=== PATIENT | female | born 1990 | race Caucasian/White ===

== ENCOUNTER 2020-12-24 17:12 | Emergency (ER) | payer OTHER ==
[~2020-12-24] VITALS: Ht 165.1 cm; Wt 110.0 kg
[2020-12-24] MEDS ORDERED: EXCETAB33 PO (17:22)
[2020-12-24] MEDS ORDERED: HYDR-643 PO (17:22)
[2020-12-24] MEDS ORDERED: NAPR220C23 PO (17:22)
--- OUTSIDE RECORDS SUMMARY | 2020-12-24 19:11 | CCD ---
Author Author [facility] Organization [facility] Address Unknown Phone Unavailable Care Team Providers Care Coding Consultant Name Role Phone Phuong Adelaida Unavailable PROBLEMS Type Condition ICD9-CM Code BIF53-BP Code Onset Dates Condition S tatus SNOMED Code Notes Problem Kidney stone N20.0 Active 21286168 Problem Obesity (BMI 30-39.9) E66.9 Active [id number] ALLERGIES No Known Allergies ENCOUNTERS from 1988 to 2020-11-02 Encounter Location Date Provider Diagnosis [facility] [address] [place] [address] Oct, Adelaida Baca Routine gynecologica l examination Z01.419 ; Obesity (BMI 30-39.9) E66.9 and Pre-conception counseling Z31.69 IMMUNIZATIONS No Information SOCIAL HISTORY Tobacco Use: Social History Observation Description Date Details (start date - stop date) Never Smoker Sex Assigned At : Social History Observation Description Sex Assigned At Unknown Language: Question Answer Notes Languages spoken: Citizen Of [place] Islam: Question Answer Notes Islam No uatsdin beliefs that would impact health care. Sexual Hx: Question Answer Notes Had sex in the last 12 months (vaginal, oral, or anal)? Yes Have you ever had an STD? No Prevention Strategies discussed: Other with Men only Alcohol Screening: Question Answer Notes Did you have a drink containing alcohol in the past year? Ye s Points 1 Interpretation Negative How often did you have six or more drinks on one occas ion in the past year? Never (0 points) How many drinks did you have on a typica l day when you were drinking in the past year? 1 or 2 (0 points) How often did you have a drink containing alcohol in t he past year? Monthly or less (1 point) Tobacco Use: Question Answer Notes Are you a: never smoker REASON FOR REFERRAL No Information VITAL SIGNS Weight 233 lbs Oct, Weight-kg 105.69 kg Oct, Height 64 in Oct, BMI 39.99 kg/m2 Oct, Blood pressure systolic 112 mm Hg Oct, Blood pressure diastolic 76 mm Hg Oct, MEDICATIONS Medication SIG (Take, Route, Frequency, Duration) Notes Start Da te End Date Status Naproxen Sodium 550 MG 1 tablet with food or milk as needed Orally every 12 hrs Active Adult Gummy/DHA/FA 0.4-25 MG as directed Orally Active HydrOXYzine HCl 10 MG 1 tab Orally QHS PRN Not-Taking PROCEDURES No Information RESULTS Component Value Reference Range PAP REQUEST FOR SERVICE Reviewed date:11/02/2020 07:58:29 Interpretation:neg pap, hpv neg Performing Lab:[facility], [facility] [address] [address] , ,[place] [address] REASON FOR VISIT ANNUAL MEDICAL (GENERAL) HISTORY Type Description Date Medical History KIDNEY STONES Medical History ANXIETY Medical History depression Surgical History CHOLECYSTECTOMY 2013 Surgical History LASER LITHO RIGHT SIDE W/ STENT PLACEME NT 17 YRS OLD Goals Section No Information Health Concerns No Information MEDICAL EQUIPMENT No Information MENTAL STATUS No Information FUNCTIONAL STATUS No Information ASSESSMENTS Encounter Date Diagnosis Assessment Notes Treatment Notes Treatm ent Clinical Notes Oct, Routine gynecological examination (ICD-10 - Z01. 419) Oct, Obesity (BMI 30-39.9) (ICD-10 - E66.9) Oct, Pre-conception counseling (ICD-10 - Z31.69) Cont with PNV, discussed with pt healthy diet and exercise, her wt is her biggest concern at this time in regards to . She is ovulating and having regular cycles. We reviewed healthy diet, avoiding take out meals for lunches at work. PLAN OF TREATMENT Treatment Notes Assessment Notes Clinical Notes Pre-conception counseling Cont with PNV, discussed with pt healthy diet and exercise, her wt is her biggest concern at this time in regards to . She is ovulating and having regular cycles. We reviewed healthy diet, avoiding take out meals for lunches at work. Next Appt Details 1 Year Reason:Annual or sooner prn Provider Name:Sana Pugh, 2020-11-23 09:00:00 AM, [address] [place], [address], Follow Up:1 YearAnnual or sooner prn Insurance Providers Payer Name Payer Address Payer Phone Insured Name Patient Relati onship to Insured Coverage Start Date Coverage End Date [facility] [address] [facility] [id number] Gaurav HOGAN self
--- OUTSIDE RECORDS SUMMARY | 2020-12-24 19:11 | CCD | Continuity of Care Document ---
Author Author Charisma PETERSEN [facility] Organization Unknown Address [address] [place] [address] Phone [phone] Care Team Providers Care Carton Filling Machine Operator Name Role Phone [facility] AUT[facility]rology AUTM Problems Active Problems Provider Date Gastroesophageal reflux disease Margarito López M.D. O nset: 01/09/2012 Obesity Margarito López M.D. Onset: 2011 Kidney stone Margarito López M.D. Onset: 2011 Migraine Margarito López M.D. Onset: 2013 Irritable bowel syndrome Margarito López M.D. Onset: 0 03/04/2014 Social History Type Date Description Comments Sex Unknown Tobacco Use Start: Unknown Never Smoked Cigarettes Smoking Status Reviewed: 12/21/20 Never Smoked Cigarettes Tobacco Use Start: Unknown Never Used Smokeless Tobacco ETOH Use Occasionally consumes alcohol Tobacco Use Start: Unknown Patient has never smoked Recreational Drug Use Never Used Drugs Exercise Type/Frequency Exercises regularly Tattoo/Piercing Pierced ears Sun Exposure Use less than 15 SPF Seat Belt/Car Seat Always uses seat belt Bike Helmet does not ride Smoke Alarms Yes Smoke Alarms Carbon Monoxide Detector: Yes Allergies, Adverse Reactions, Alerts Active Allergies Reaction Severity Comments Date NKDA 01/09/2012 seasonal 12/14/2010 Medications Active Medications SIG Qnty Indications Ordering Provide r Date Anusol-HC 25mg Suppository one by way of rectum twice a day 12units K64.8 Nicola DANIEL Bliss 12/21/19 21 Colace 100mg Capsules 1 cap by mouth twice a day 180caps Nicola DANIEL Bliss 12/21/2020 Naproxen Sodium 550mg Tablets one po bid prn for menstrual cramps 60tabs Ruthy Petersen FNP Hydroxyzine HCL 10mg Tablets 1-2 tab by mouth three times a day as needed anxiety 60tabs F51.02 Ruthy Guy ch, FNP 02/12/2020 Zyrtec Allergy 10mg Tablets 1 by mouth every day as needed Unknown Excedrin Migraine [phone] Tablets Unknown Fish Oil 1000mg Capsules 2 by mouth a day Unknown Probiotic Daily Capsules 1 by mouth every day Unknown Vitamin Tablets 1 by mouth every day Unknown History Medications Sertraline HCL 50mg Tablets 1 by mouth every day 30tabs F43.23 Ruthy Petersen FNP 10/12/2020 - 12/21/2020 Immunizations CPT Code Status Date Vaccine Lot # [id number] Given 12/21/2020 Moderna Sars-(Co vid-19) vaccine, mRNA, LNP-S, PF, 100 mcg/ 0.5 mL 87125 Given 12/21/2020 Moderna Sars-(Co vid-19) vaccine, mRNA, LNP-S, PF, 100 mcg/ 0.5 mL Vital Signs Date Vital Result Comment 12/21/2020 4:11pm BP Systolic 130 mmHg BP Diastolic 77 mmHg Heart Rate 88 /min Body Temperature 96.4 F Respiratory Rate 16 /min Height 65 inches 5'5" Weight 242.38 lb O2 % BldC Oximetry 99 % Peak Expiratory Flow Rate 390 Estimated Peak Flow Rate [place] Body Weight 125 lb BMI (Body Mass Index) 40.3 kg/m2 10/12/2020 4:59pm BP Systolic 100 mmHg BP Diastolic 62 mmHg Heart Rate 72 /min Body Temperature 97.1 F Respiratory Rate 16 /min Height 65 inches 5'5" Weight 238.50 lb O2 % BldC Oximetry 99 % Peak Expiratory Flow Rate 390 Estimated Peak Flow Rate Last Menstrual Period [id number] [place] Body Weight 125 lb BMI (Body Mass Index) 39.7 kg/m2 Results Description No Information Available Procedures Description No Information Available Medical Devices Description No Information Available Encounters Type Date Location Provider Dx Diagnosis Office Visit 10/12/2020 4:45p Main Office Ruthy Petersen FNP Z00.0 0 Encntr for general adult medical exam w/o abnormal findings F43.23 Adjustment disorder with mix ed anxiety and depressed mood G43.101 Migraine with aura, not intr actable, with status migrainosus Assessments Date Code Description Provider 12/21/2020 R00.2 Palpitations Ruthy Petersen FNP 10/12/2020 Z00.00 Encounter for genera l adult medical examination without abnormal findings Ruthy Petersen FNP 10/12/2020 F43.23 Adjustment disorder with mixed a nxiety and depressed mood Ruthy Petersen FNP 10/12/2020 G43.101 Migraine with aura, not intracta ble, with status migrainosus Ruthy Petersen FNP Plan of Treatment 12/21/2020 - Ruthy Petersen FNP* R00.2 Palpitations* New Labs:* Basic Metabolic Profile, Scheduled: 12/21/20 * Magnesium Level, Scheduled: 12/21/20 * TSH And T4 Free (Nelson), Scheduled: 12/21/20 * Comments:* refer to Cardiology * All * New Medication:* Anusol-HC 25 mg - one by way of rectum twice a day * Colace 100 mg - 1 cap by mouth twice a day Functional Status Functional Condition Comment Date Status Glasses Active Independent with all ADL's Activ e Independent with all IADL's Acti ve Mental Status Mental Condition Comment Date Status None Active Referrals Description No Information Available
--- OUTSIDE RECORDS SUMMARY | 2020-12-24 19:11 | CCD | Continuity of Care Document ---
Author Author Charisma PETERSEN [facility] Organization Unknown Address [address] [place] [address] Phone [phone] Care Team Providers Care Instrument Repairer Name Role Phone [facility] AUTM [phone] [facility] - Urology AUTM Problems Active [...] Unknown Never Smoked Cigarettes Smoking Status Reviewed: 10/12/20 Never Smoked Cigarettes Tobacco Use Start: Unknown [...] SIG Qnty Indications Ordering Provide r Date Sertraline HCL 50mg Tablets 1 by mouth every day 30tabs F43.23 Ruthy Petersen FNP 10/12/2020 Naproxen Sodium 550mg Tablets one po bid prn for menstrual cramps 60tabs Ruthy Petersen FNP Hydroxyzine HCL 10mg Tablets 1-2 tab by mouth three times a day as needed anxiety 60tabs F51.02 Ruthy Guy ch, FNP 02/12/2020 Zyrtec Allergy 10mg Tablets 1 by mouth every day as needed Unknown Excedrin Migraine [phone] Tablets Unknown Fish Oil 1000mg Capsules 2 by mouth a day Unknown Probiotic Daily Capsules 1 by mouth every day Unknown Vitamin Tablets 1 by mouth every day Unknown Immunizations Description No Information Available Vital Signs Date Vital Result Comment 10/12/2020 4:59pm BP Systolic 100 mmHg BP Diastolic 62 mmHg Heart Rate 72 /min Body Temperature 97.1 F Respiratory Rate 16 /min Height 65 inches 5'5" Weight 238.50 lb O2 % BldC Oximetry 99 % Peak Expiratory Flow Rate 390 Estimated Peak Flow Rate Last Menstrual Period [id number] [place] Body Weight 125 lb BMI (Body Mass Index) 39.7 kg/m2 04/21/2020 2:47pm BP Systolic 125 mmHg BP Diastolic 85 mmHg BP Systolic Recheck 130 mmHg BP Diastolic Recheck 84 mmHg Heart Rate 91 /min Body Temperature 99.0 F Respiratory Rate 12 /min Height 65 inches 5'5" Weight 232.75 lb O2 % BldC Oximetry 99 % Peak Expiratory Flow Rate 392 Estimated Peak Flow Rate [place] Body Weight 125 lb BMI (Body Mass Index) 38.7 kg/m2 Results Test Acquired Date Facility Test Result H/L Range Note Laboratory test finding 04/21/2020 [facility] [place] [address] [phone] iSTAT B-hCG < 5.0 Normal 1 CBC With Differential 04/21/2020 [place] [address] [phone] White Blood Count 9.9 10 Normal 4.0-10.0 Red Blood Count 4.56 10 Normal 4.00-5.40 Hemoglobin 13.0 g/dL Normal 12.0-15.5 Hematocrit 40.5 % Normal 36.0-47.0 Mean Corpuscular Volume 88.8 fl Normal 80.0-96.0 Mean Corpuscular Hemoglobin 28.5 pg Normal 27.0-33.0 Mean Corpuscular HGB Conc 32.1 g/dL Normal 32.0-36.5 Red Cell Distribution Width 13.1 % Normal 11.5-14.5 Platelet Count, Automated 326 10 Normal 150-450 Neutrophils % 59.2 % Normal 36.0-66.0 Lymph % 31.2 % Normal 24.0-44.0 [place] % 6.7 % High 0.0-5.0 Eos % 2.0 % Normal 0.0-3.0 Baso % 0.7 % Normal 0.0-1.0 Immature Granulocyte % 0.2 % Normal 0-3.0 Nucleated Red Blood Cell % 0.0 % Normal 0-0 Neutrophils # 5.9 10 Normal 1.5-8.5 Lymph # 3.1 10 Normal 1.5-5.0 [place] # 0.7 10 Normal 0.0-0.8 Eos # 0.2 10 Normal 0.0-0.5 Baso # 0.1 10 Normal 0.0-0.2 Prothrombin Time/Inr 04/21/2020 [place] [address] [phone] Prothrombin Time 12.7 seconds Normal 11.8-14.0 Inr 0.98 Normal 2 Laboratory test finding 04/21/2020 [place] [address] [phone] D-Dimer Quant 297.87 ng/ml Normal <500 Cardiac Marker Panel 04/21/2020 [place] [address] [phone] CPK Creatine Phosphokinase 70 U/L Normal 26-19 2 CK-MB Value Mass < 1.0 NG/ML Normal <3.6 MB/CK Relative Index 1.43 Normal < Or =4 3 Troponin I < 0.02 NG/ML Normal < 0.10 4 Liver Profile 04/21/2020 [place] [address] [phone] Ast/Sgot 17 U/L Normal 7-37 Alt/SGPT 54 U/L Normal 12-78 Alkaline Phosphatase 83 U/L Normal 45-117 Bilirubin,Total 0.3 mg/dL Normal 0.2-1.0 Bilirubin,Direct 0.2 mg/dL Normal 0.0-0.2 Total Protein 8.1 GM/DL Normal 6.4-8.2 Albumin 4.4 GM/DL Normal 3.2-5.2 Albumin/Globulin Ratio 1.2 Normal 1.2-2.2 Basic Metabolic Profile 04/21/2020 [place] [address] [phone] Glucose, Fasting 90 mg/dL Normal 70-100 Blood Urea Nitrogen 17 mg/dL Normal 7-18 Creatinine For GFR 0.96 mg/dL Normal 0.55-1.30 Glomerular Filtration Rate > 60.0 Normal >60 5 Sodium Level 143 mEq/L Normal 136-145 Potassium Serum 3.9 mEq/L Normal 3.5-5.1 Chloride Level 107 mEq/L Normal 98-107 Carbon Dioxide Level 29 mEq/L Normal 21-32 Anion Gap 7 mEq/L Low 8-16 Calcium Level 9.8 mg/dL Normal 8.5-10.1 Laboratory test finding 04/21/2020 [place] [address] [phone] Magnesium Level 1.9 mg/dL Normal 1.8-2.4 NT-Pro BNP 21 pg/mL Normal <125 Thyroxine (T4) 10.4 g/dL Normal 4.5-12.0 Thyroid Stimulating Hormone 0.975 uIU/ML Normal 0.358-3.740 1 QUANTITATIVE RESULT QUALITATIVE INTERPRETATION <5.0 IU/L NEGATIVE 5.0 - 25.0 IU/L INDETER MINATE >25.0 IU/L POSITIVE 2 THERAPUTIC HUMAN INR VALUES INDICATIONS NORMAL RANGES PROPHYLAXIS/TREATMENT OF: VENOUS THROMBOSIS 2.0-3.0 PULMONARY EMBOLISM 2.0-3.0 PREVENTION OF SYSTEMIC EMBOLISM FROM: TISSUE HEART VALVES 2.0-3.0 ACUTE MYOCARDIAL INFARCTION 2.0-3.0 VALVULAR HEART DISEASE 2.0-3.0 ATRIAL FIBRILLATION 2.0-3.0 MECHANICAL VALVES(HIGH RISK) 2.5-3.5 RECURRENT MYOCARDIAL INFARCTION 2.5-3.5 3 DIAGNOSIS CRITERIA MMB ng/ml Relative Index (RI) NON-AMI < or = 5 N/A LEWIS ZONE > 5 < or = 4 AMI > 5 > 4 4 Troponin I Reference Interva l for [employer] LOCI: 99th Percentile= 0.00-0.045 ng/ml Risk Stratification: <= 0.10 ng/ml Decreased Risk for Adverse Clinical Events. 0.10-1.50 ng/ml Increased Risk for Adv erse Clinical Events. Evaluation of additional criterion and/or repeat testing in 2-6 hours is suggested to rule out myocardial damage. >= 1.50 ng/ml Indicative of Myocardial Injury. 5 Units are mL/min/1.73 m2 Chronic Kidney Disease Staging per NKF: Stage I & II GFR >=60 Normal to Mildly Decreased Stage III GFR 30-59 Moderately Decreased Stage IV GFR 15-29 Severely Decreased Stage V GFR <15 Very Little GFR Left ESRD GFR <15 on VP INFORMATICS Procedures Date Code Description Status 04/21/2020 29619 Brief Emotional/Beha v Assessment W/ Scoring Doc Per Standard Inst Completed Medical Devices Description No Information Available Encounters Type Date Location Provider Dx Diagnosis Office Visit 10/12/2020 4:45p Main Office Ruthy Petersen FNP Z00.0 0 Encntr for general adult medical exam w/o abnormal findings F43.23 Adjustment disorder with mix ed anxiety and depressed mood G43.101 Migraine with aura, not intr actable, with status migrainosus Office Visit 04/21/2020 2:20p Main Office Ruthy Petersen FNP R00.2 Palpitations Z13.89 Encounter for screening for other disorder Assessments Date Code Description Provider 10/12/2020 Z00.00 Encounter for genera l adult medical examination without abnormal findings Ruthy Petersen FNP 10/12/2020 F43.23 Adjustment disorder with mixed a nxiety and depressed mood Ruthy Petersen FNP 10/12/2020 G43.101 Migraine with aura, not intracta ble, with status migrainosus Ruthy Petersen FNP 04/21/2020 R00.2 Palpitations Ruthy Petersen FNP 04/21/2020 Z13.89 Encounter for screening for othe r disorder Ruthy Petersen FNP Plan of Treatment Future Appointment(s):* 11/23/2020 4:00 pm - Ruthy Petersen FNP at Main Office 10/12/2020 - Ruthy Petersen FNP* Z00.00 Encounter for general adult medical examination without abnormal findings* New Labs:* CBC With Differential, Scheduled: 10/12/20 * Comprehensive Metabolic Profil, Scheduled: 10/12/20 * Lipid Panel, Scheduled: 10/12/20 * TSH And T4 Free (Nelson), Scheduled: 10/12/20 * Vitamin D 25-Hydroxy, Scheduled: 10/12/20 * Comments:* Health maintenance up to date. Overall doing well. ELEAZAR/PHQ 9/CAGE questionnaire reviewed. Discussed healthy lifestyle choices. * F43.23 Adjustment disorder with mixed anxiety and depressed mood* New Medication:* Sertraline HCL 50 mg - 1 by mouth every day * Follow up:* 6-8 weeks * Recommendations:* take sertraline 1/2 tab daily for one week then a whole tablet daily * G43.101 Migraine with aura, not intractable, with status migrainosus Functional Status Functional Condition Comment Date Status Glasses Active Independent with all ADL's Activ e Independent with all IADL's Acti ve Mental Status Mental Condition Comment Date Status None Active Referrals Description No Information Available
--- OUTSIDE RECORDS SUMMARY | 2020-12-24 19:11 | CCD | Continuity of Care Document ---
Author Author Charisma [facility]ERSEN [facility] Organization Unknown Address [address] [place] [address] Phone [phone] Care Team Providers Care Survey Research Center Director Name Role Phone [facility] G[facility] Gastroenterology AUTM [phone] [facility] [place] - Urology AUTM [phone] Denise Clements M.D. AUTM [phone] Problems Active Problems Provider Date Gastroesophageal reflux [...] of rectum twice a day 12units K64.8 Ruthy Petersen FNP 12/21/19 21 Colace 100mg Capsules 1 cap by mouth twice a day 180caps Ruthy Petersen FNP 12/21/2020 Naproxen Sodium 550mg Tablets one po bid prn for menstrual cramps 60tabs Ruthy Petersen FNP Hydroxyzine HCL 10mg Tablets 1-2 tab by mouth three times a day as needed anxiety 60tabs F51.02 Ruthy Guy ch, FNP 02/12/2020 Zyrtec Allergy 10mg Tablets 1 by mouth every day as needed Unknown Excedrin Migraine [phone] Tablets Unknown Fish Oil 1000mg Capsules 2 by mouth a day Unknown Probiotic Daily Capsules 1 by mouth every day Unknown Vitamin Tablets 1 by mouth every day Unknown History Medications Sertraline HCL 50mg Tablets 1 by mouth every day 30tabs F43.23 Ruthy Petersen FNP 10/12/2020 - 12/21/2020 Immunizations CPT Code Status Date Vaccine Lot # [id number] Given 12/21/2020 Moderna Sars-(Co vid-19) vaccine, mRNA, LNP-S, PF, 100 mcg/ 0.5 mL [id number] Given 12/21/2020 Moderna Sars-(Co vid-19) vaccine, mRNA, LNP-S, PF, 100 mcg/ 0.5 mL Vital Signs Date Vital Result Comment 12/21/2020 4:11pm BP Systolic 130 mmHg BP Diastolic 77 mmHg Heart Rate 88 /min Body Temperature 96.4 F Respiratory Rate 16 /min Height 65 inches 5'5" Weight 242.38 lb O2 % BldC Oximetry 99 % Peak Expiratory Flow Rate 390 Estimated Peak Flow Rate [place] Body Weight 125 lb BMI (Body Mass Index) 40.3 kg/m2 10/12/2020 4:59pm BP Systolic 100 mmHg BP Diastolic 62 mmHg Heart Rate 72 /min Body Temperature 97.1 F Respiratory Rate 16 /min Height 65 inches 5'5" Weight 238.50 lb O2 % BldC Oximetry 99 % Peak Expiratory Flow Rate 390 Estimated Peak Flow Rate Last Menstrual Period [id number] [place] Body Weight 125 lb BMI (Body Mass Index) 39.7 kg/m2 Results Description No Information Available Procedures Description No Information Available Medical Devices Description No Information Available Encounters Type Date Location Provider Dx Diagnosis Office Visit 12/21/2020 4:00p Main Office Ruthy Petersen FNP R00.2 Palpitations Office Visit 10/12/2020 4:45p Main Office Ruthy [...] T4 Free (Nelson), Scheduled: 12/21/20 * Comments:* get blood work and refer to Cardiology * All * New Medication:* Anusol-HC 25 mg - one by way of rectum twice a day * Colace 100 mg - 1 cap by mouth twice a day Functional Status Functional Condition Comment Date Status Glasses Active Independent with all ADL's Activ e Independent with all IADL's Acti ve Mental Status Mental Condition Comment Date Status None Active Referrals Refer to Reason for Referral Status Appt Date Denise Clements M.D. [place] [id number] [facility] [address] [address] [phone]
--- OUTSIDE RECORDS SUMMARY | 2020-12-24 19:11 | CCD | Continuity of Care Document ---
Author Author [facility] Organization Unknown Address [address] [place] [id number] Phone [phone] Care Team Providers Care Urban Design Consultant Name Role Phone [facility]M Problems [...] 1 by mouth every day 30tabs F43.23 Rutyh Petersen FNP 10/12/2020 Naproxen Sodium 550mg Tablets one po bid prn for menstrual cramps 60tabs Ruthy Petersen FNP Hydroxyzine HCL 10mg Tablets 1-2 tab by mouth three times a day as needed anxiety 60tabs F51.02 Ruthy Guy ch, FNP 02/12/2020 Zyrtec Allergy 10mg Tablets 1 by mouth every day as needed Unknown Excedrin Migraine [phone] Tablets Unknown Fish Oil 1000mg Capsules 2 [...] Estimated Peak Flow Rate Last Menstrual Period [id number] [place] Body Weight 125 lb BMI (Body Mass [...] Flow Rate 392 Estimated Peak Flow Rate [place] Body Weight 125 lb BMI (Body Mass Index) 38.7 kg/m2 Results Test Acquired Date Facility Test Result H/L Range Note Laboratory test finding 04/21/2020 [place] [address] [phone] iSTAT B-hCG < 5.0 Normal 1 CBC With Differential 04/21/2020 [place] [address] [phone] White Blood Count 9.9 10 Normal 4.0-10.0 [...] 36.0-66.0 Lymph % 31.2 % Normal 24.0-44.0 [place] % 6.7 % High 0.0-5.0 Eos % 2.0 % Normal 0.0-3.0 Baso % 0.7 % Normal 0.0-1.0 Immature Granulocyte % 0.2 % Normal 0-3.0 Nucleated Red Blood Cell % 0.0 % Normal 0-0 Neutrophils # 5.9 10 Normal 1.5-8.5 Lymph # 3.1 10 Normal 1.5-5.0 Atlantic # 0.7 10 Normal 0.0-0.8 Eos # 0.2 10 Normal 0.0-0.5 Baso # 0.1 10 Normal 0.0-0.2 Prothrombin Time/Inr 04/21/2020 [place] [address] [phone] Prothrombin Time 12.7 seconds Normal 11.8-14.0 Inr 0.98 Normal 2 Laboratory test finding 04/21/2020 [place] [address] [phone] D-Dimer Quant 297.87 ng/ml Normal <500 Cardiac Marker Panel 04/21/2020 [place] [address] [phone] CPK Creatine Phosphokinase 70 U/L Normal 26-19 2 CK-MB Value Mass < 1.0 NG/ML Normal <3.6 MB/CK Relative Index 1.43 Normal < Or =4 3 Troponin I < 0.02 NG/ML Normal < 0.10 4 Liver Profile 04/21/2020 [place] [address] [phone] Ast/Sgot 17 U/L Normal 7-37 Alt/SGPT 54 U/L Normal 12-78 Alkaline Phosphatase 83 U/L Normal 45-117 Bilirubin,Total 0.3 mg/dL Normal 0.2-1.0 Bilirubin,Direct 0.2 mg/dL Normal 0.0-0.2 Total Protein 8.1 GM/DL Normal 6.4-8.2 Albumin 4.4 GM/DL Normal 3.2-5.2 Albumin/Globulin Ratio 1.2 Normal 1.2-2.2 Basic Metabolic Profile 04/21/2020 [place] [address] [phone] Glucose, Fasting 90 mg/dL Normal 70-100 Blood [...] 8.5-10.1 Laboratory test finding 04/21/2020 [place] [address] [phone] Magnesium Level 1.9 mg/dL Normal 1.8-2.4 NT-Pro [...] 4 Troponin I Reference Interva l for Regen LOCI: 99th Percentile= 0.00-0.045 ng/ml Risk Stratification: [...] Little GFR Left ESRD GFR <15 on [employer] Procedures Date Code Description Status 04/21/2020 15894 Brief Emotional/Beha v Assessment W/ Scoring Doc [...] - 1 by mouth every day * Comments:* start sertraline and see response * Follow up:* 6-8 weeks * Recommendations:* take sertraline 1/2 tab daily for one week then a whole tablet daily * G43.101 Migraine with aura, not intractable, with status migrainosus* Comments:* doing well, OTC excedrin is effective Functional Status Functional Condition Comment Date Status Glasses Active Independent with all ADL's Activ e Independent with all IADL's Acti ve Mental Status Mental Condition Comment Date Status None Active Referrals Description No Information Available
--- OUTSIDE RECORDS SUMMARY | 2020-12-24 19:12 | CCD ---
Author Author [facility] Address Unknown Phone Unavailable Care Team Providers Care Diamond Assorter Name Role Phone Scordo, M Katheryn PA Unavailable Unavailable Scordo, M Katheryn PA Unavailable Unavailable Scordo, M Katheryn PA Unavailable Unavailable Scordo, M Katheryn PA Unavailable Unavailable Scordo, M Katheryn PA Unavailable Unavailable Scordo, M Katheryn PA Unavailable Unavailable Scordo, M Katheryn PA Unavailable Unavailable Scordo, M Katheryn PA Unavailable Unavailable Scordo, M Katheryn PA Unavailable Unavailable Scordo, M Katheryn PA Unavailable Unavailable Scordo, M Katheryn PA Unavailable Unavailable Scordo, M Katheryn PA Unavailable Unavailable Scordo, M Katheryn PA Unavailable Unavailable Scordo, M Katheryn PA Unavailable Unavailable Scordo, M Katheryn PA Unavailable Unavailable Scordo, M Katheryn PA Unavailable Unavailable Scordo, M Katheryn PA Unavailable Unavailable Scordo, M Katheryn PA Unavailable Unavailable Scordo, M Katheryn PA Unavailable Unavailable Scordo, M Katheryn PA Unavailable Unavailable Scordo, M Katheryn PA Unavailable Unavailable Scordo, M Katheryn PA Unavailable Unavailable Scordo, M Katheryn PA Unavailable Unavailable Scordo, M Katheryn PA Unavailable Unavailable Scordo, M Katheryn PA Unavailable Unavailable Scordo, M Katheryn PA Unavailable Unavailable Scordo, M Katheryn PA Unavailable Unavailable Scordo, M Katheryn PA Unavailable Unavailable Scordo, M Katheryn PA Unavailable Unavailable Scordo, M Katheryn PA Unavailable Unavailable Scordo, M Katheryn PA Unavailable Unavailable Scordo, M Katheryn PA Unavailable Unavailable Scordo, M Katheryn PA Unavailable Unavailable Scordo, M Katheryn PA Unavailable Unavailable Scordo, M Katheryn PA Unavailable Unavailable Scordo, M Katheryn PA Unavailable Unavailable Scordo, M Katheryn PA Unavailable Unavailable Scordo, M Katheryn PA Unavailable Unavailable Scordo, M Katheryn PA Unavailable Unavailable Scordo, M Katheryn PA Unavailable Unavailable Scordo, M Katheryn PA Unavailable Unavailable Scordo, M Katheryn PA Unavailable Unavailable Scordo, M Katheryn PA Unavailable Unavailable Pleskach, Ruthy PURCHASING ADMINISTRATOR Unavailable Unavailable Pleskach, Ruthy PURCHASING ADMINISTRATOR Unavailable Unavailable Pleskach, Ruthy PURCHASING ADMINISTRATOR Unavailable Unavailable Pleskach, Ruthy PURCHASING ADMINISTRATOR Unavailable Unavailable Pleskach, Ruthy PURCHASING ADMINISTRATOR Unavailable Unavailable Pleskach, Ruthy PURCHASING ADMINISTRATOR Unavailable Unavailable Pleskach, Ruthy PURCHASING ADMINISTRATOR Unavailable Unavailable Pleskach, Ruthy PURCHASING ADMINISTRATOR Unavailable Unavailable Pleskach, Ruthy PURCHASING ADMINISTRATOR Unavailable Unavailable Pleskach, Ruthy PURCHASING ADMINISTRATOR Unavailable Unavailable Pleskach, Ruthy PURCHASING ADMINISTRATOR Unavailable Unavailable Pleskach, Ruthy PURCHASING ADMINISTRATOR Unavailable Unavailable Pleskach, Ruthy PURCHASING ADMINISTRATOR Unavailable Unavailable Pleskach, Ruthy PURCHASING ADMINISTRATOR Unavailable Unavailable Pleskach, Ruthy PURCHASING ADMINISTRATOR Unavailable Unavailable Pleskach, Ruthy PURCHASING ADMINISTRATOR Unavailable Unavailable Pleskach, Ruthy PURCHASING ADMINISTRATOR Unavailable Unavailable Pleskach, Ruthy PURCHASING ADMINISTRATOR Unavailable Unavailable Pleskach, Ruthy PURCHASING ADMINISTRATOR Unavailable Unavailable Pleskach, Ruthy PURCHASING ADMINISTRATOR Unavailable Unavailable Pleskach, Ruthy PURCHASING ADMINISTRATOR Unavailable Unavailable Pleskach, Ruthy PURCHASING ADMINISTRATOR Unavailable Unavailable Pleskach, Ruthy PURCHASING ADMINISTRATOR Unavailable Unavailable Pleskach, Rtuhy PURCHASING ADMINISTRATOR Unavailable Unavailable Pleskach, Ruthy PURCHASING ADMINISTRATOR Unavailable Unavailable Pleskach, Ruthy PURCHASING ADMINISTRATOR Unavailable Unavailable Pleskach, Ruthy PURCHASING ADMINISTRATOR Unavailable Unavailable Pleskach, Ruthy PURCHASING ADMINISTRATOR Unavailable Unavailable Pleskach, Ruthy PURCHASING ADMINISTRATOR Unavailable Unavailable Pleskach, Ruthy PURCHASING ADMINISTRATOR Unavailable Unavailable GARCIA, HIGH SCHOOL FRENCH TEACHER HALEY Unavailable Unavailable Wills, Haley HIGH SCHOOL FRENCH TEACHER Unavailable Unavailable Wills, Haley HIGH SCHOOL FRENCH TEACHER Unavailable Unavailable Wills, Haley HIGH SCHOOL FRENCH TEACHER Unavailable Unavailable Wills, Haley HIGH SCHOOL FRENCH TEACHER Unavailable Unavailable Wills, Haley HIGH SCHOOL FRENCH TEACHER Unavailable Unavailable Wills, Haley HIGH SCHOOL FRENCH TEACHER Unavailable Unavailable Wills, Haley HIGH SCHOOL FRENCH TEACHER Unavailable Unavailable Wills, Haley HIGH SCHOOL FRENCH TEACHER Unavailable Unavailable Wills, Haley HIGH SCHOOL FRENCH TEACHER Unavailable Unavailable Wills, Haley HIGH SCHOOL FRENCH TEACHER Unavailable Unavailable Wills, Haley HIGH SCHOOL FRENCH TEACHER Unavailable Unavailable LETTIERE, A LINNEA PA Unavailable Unavailable LETTIERE, A LINNEA PA Unavailable Unavailable LETTIERE, A LINNEA PA Unavailable Unavailable LETTIERE, A LINNEA PA Unavailable Unavailable LETTIERE, A LINNEA PA Unavailable Unavailable LETTIERE, A LINNEA PA Unavailable Unavailable LETTIERE, A LINNEA PA Unavailable Unavailable LETTIERE, A LINNEA PA Unavailable Unavailable LETTIERE, A LINNEA PA Unavailable Unavailable LETTIERE, A LINNEA PA Unavailable Unavailable LETTIERE, A LINNEA PA Unavailable Unavailable LETTIERE, A LINNEA PA Unavailable Unavailable LETTIERE, A LINNEA PA Unavailable Unavailable LETTIERE, A LINNEA PA Unavailable Unavailable LETTIERE, A LINNEA PA Unavailable Unavailable LETTIERE, A LINNEA PA Unavailable Unavailable LETTIERE, A LINNEA PA Unavailable Unavailable LETTIERE, A LINNEA PA Unavailable Unavailable LETTIERE, A LINNEA PA Unavailable Unavailable LETTIERE, A LINNEA PA Unavailable Unavailable LETTIERE, A LINNEA PA Unavailable Unavailable LETTIERE, A LINNEA PA Unavailable Unavailable LETTIERE, A LINNEA PA Unavailable Unavailable LETTIERE, A LINNEA PA Unavailable Unavailable LETTIERE, A LINNEA PA Unavailable Unavailable LETTIERE, A LINNEA PA Unavailable Unavailable LETTIERE, A LINNEA PA Unavailable Unavailable LETTIERE, A LINNEA PA Unavailable Unavailable LETTIERE, A LINNEA PA Unavailable Unavailable Re-disclosure Warning The records that you are about to access may contain information from federally-assisted alcohol or drug abuse programs. If such information is present, then the following federally mandated warning applies: This information has been disclosed to you from records protected by federal confidentiality rules (42 CFR part 2). The federal rules prohibit you from making any further disclosure of this information unless further disclosure is expressly permitted by the written consent of the person to whom it pertains or as otherwise permitted by 42 CFR part 2. A general authorization for the release of medical or other information is NOT sufficient for this purpose. The Federal rules restrict any use of the information to criminally investigate or prosecute any alcohol or drug abuse patient.The records that you are about to access may contain highly sensitive health information, the redisclosure of which is protected by Article 27-F of the [facility] Public Health law. If you continue you may have access to information: Regarding HIV / AIDS; Provided by facilities licensed or operated by the [facility] Office of Mental Health; or Provided by the [facility] Office for People With Developmental Disabilities. If such information is present, then the following [facility] mandated warning applies: This information has been disclosed to you from confidential records which are protected by state law. State law prohibits you from making any further disclosure of this information without the specific written consent of the person to whom it pertains, or as otherwise permitted by law. Any unauthorized further disclosure in violation of state law may result in a fine or fci sentence or both. A general authorization for the release of medical or other information is NOT sufficient authorization for further disc losure. Family History Family Member Name Family Member Gender Family Member Status Date o f Status Description Data Source(s) Unknown Male Problem [facility] ([facility] Encounters Encounter Providers Location Date Indications Data Source(s ) Outpatient Attender: Ruthy Petersen [facility] Main Office 12/21/2020 0 3:00:00 PM EST [facility] ([facility] Outpatient [address] [facility] [id number] 10/23/2020 12:00:00 AM EST [facility]CW1 [facility] Outpatient Attender: Ruthy Petersen [facility] Main Office 10/12/2020 0 3:45:00 PM EST [facility] ([facility] Outpatient Attender: Haley blake 06/19/2020 06:50:00 PM EDT [facility] ([facility]) Outpatient Referrer: IMMANUEL GARCIA 05/01/2020 05:38:00 AM EDT [facility] Outpatient Attender: Ruthy Petersen [facility] Main Office 04/21/2020 0 2:20:00 PM EDT [facility] ([facility] Outpatient [address] [facility] [id number] 04/20/2020 12:00:00 AM EDT eCW1 ([facility]) Unknown [address] [facility] [id number] 04/17/2020 12:00:00 AM EDT eCW1 ([facility]) [facility] Urology [address] [facility] [id number] 04/01/2020 12:00:00 AM EDT eCW1 ([facility]) [facility] [address] [facility] [address] [id number] 04/01/2020 12:00:00 AM EDT eCW1 ([facility]) Outpatient Attender: Katheryn SOLARES Main Office 03/17/2020 11:15:00 AM EDT [facility] ([facility] Outpatient Attender: Ruthy Petersen [facility] Main Office 02/12/2020 1 1:00:00 AM EDT [facility] ([facility] Outpatient Attender: LINNEA connors 12/20/2019 08:45:00 AM EST [facility] ([facility]) Immunizations Vaccine Date Status Description Data Source(s) Moderna Sars-(Covid-19) vaccine, mRNA, LNP-S, PF, 100 mcg/ 0.5 mL 12/21/2020 03:27:00 PM EST completed [facility] Moderna Sars-(Covid-19) vaccine, mRNA, LNP-S, PF, 100 mcg/ 0.5 mL 12/21/2020 03:27:00 PM EST completed [facility] Medications Medication Brand Name Start Date Product Form Dose Route Admi nistrative Instructions Pharmacy Instructions Status Indications Reaction Description Data Source(s) hydrocortisone acetate 25 MG Rectal Suppository [Anusol HC] Anusol-HC 12/21/2020 12:00:00 AM EST RECTAL active M [facility] ([facility] Docusate Sodium 100 MG Oral Capsule [Colace] Colace 12:00:00 AM EST ORAL active [facility] ( [facility] Sertraline 50 MG Oral Tablet Sertraline HCL 10/12/2020 12:00:00 AM EST ORAL completed [facility] ([facility] Erythromycin 0.005 MG/MG Ophthalmic Ointment Erythromycin 06/19/2020 12:00:00 AM EDT active [facility] ([facility]) NITROFURANTOIN, MACROCRYSTALS 25 MG / Ni trofurantoin, Monohydrate 75 MG Oral Capsule Nitrofurantoin Monohydrate/Macrocrystals 03/17/2020 12:00:00 AM EDT completed [facility] ([facility] 10 mg 02/12/2020 12:00:00 AM EDT tablet 60 TAKE 1-2 TABLETS BY MOUTH THREE TIMES A DAY NEEDED FOR ANXIETY TAKE 1-2 TABLETS BY MOUTH THREE TIMES A DAY NEEDED FOR ANXIETY SOLD: 02/12/2020 [facility] Naproxen sodium 550 MG Oral Tablet Naproxen Sodium 02/12/2020 12:00 :00 AM EDT ORAL active [facility] ([facility] Hydroxyzine Hydrochloride 10 MG Oral Tablet Hydroxyzine HCL 02/12/2020 12:00:00 AM EDT ORAL active [facility] ([facility] 550 mg 02/12/2020 12:00:00 AM EDT tablet 60 TAKE 1 TABLET BY MOUTH TWO TIMES A DAY NEEDED FOR MENSTRUAL CRAMPS TAKE 1 TABLET BY MOUTH TWO TIMES A DAY A S NEEDED FOR MENSTRUAL CRAMPS SOLD: 02/12/2020 [facility] Amoxicillin 875 MG / Clavulanate 125 MG Oral Tablet Am oxicillin/Clavulanate Potassium 07/30/2019 12:00:00 AM EDT ORAL completed [facility] ([facility]) Insurance Providers Payer name Policy type / Coverage type Policy ID Covered green party ID Covered green party's relationship to zhong Policy Zhong Plan Information [facility] [id number] SP [id number] [facility] [id number] SP [id number] [facility] O [id number] S [id number] [facility] [id number] FA2 [id number] [facility] [id number] FA2 [id number] [facility] Medicaid Commercial [id number] Self [id number] [facility] Medicaid Commercial [id number] Self [id number] [facility] Medicaid Commercial [id number] Self [id number] [facility] O [id number] S [id number] [facility] Medicaid Commercial [id number] Self [id number] [facility] O [id number] S [id number] [facility] [id number] SP [id number] [facility] [id number] Self [id number] BS [facility] (O) [id number] Self [id number] [facility] [id number] Health Net [facility] Commercial [id number] Health Net [facility] Commercial [id number] Health Net [facility] Commercial [id number] Health [facility] Commercial HEALTHNET/ AD O [id number] P [id number] SELF PAY UNAVAILABLE SP UNAVAILA BLE [facility] DEB P [id number] P [id number] [employer]- [id number] Problems, Conditions, and Diagnoses Code Display Name Description Problem Type Effective Dates Data Source(s) E66.9 [id number] Obesity (BMI 30-39.9) Problem 10/23/2020 12: 00:00 AM EST eCW1 ([facility]) N20.0 Kidney stone Kidney stone Problem 04/01/2020 12:00:00 A M EDT eCW1 ([facility]) N20.0 Kidney stone Kidney stone Problem 04/01/2020 12:00:00 A M EDT eCW1 ([facility]) Surgeries/Procedures Procedure Description Date Indications Data Source(s) Brief Emotional/Behav Assessment W/ Scoring Doc Per Standard Inst 04/21/2020 12:00:00 AM EDT [facility] ([facility] Results ID Date Data Source PAP REQUEST FOR SERVICE 10/23/2020 12:00:00 AM EST eCW1 ([facility]) Name Value Range Interpretation Code Description Data Jada rce(s) Supporting Document(s) PAP REQUEST FOR SERVICE eCW1 ( [facility]) ID Date Data Source [id number] 09/26/2020 12:00:00 AM EST [facility] Name Value Range Interpretation Code Description Data Jada rce(s) Supporting Document(s) SARS coronavirus 2 RNA [Presence] in Res piratory specimen by SAFIA with probe detection [facility] This lab was ordered by Babar Herndon and reported by [facility]. ID Date Data Source [id number] 04/21/2020 05:07:00 PM EDT [facility] ([facility] Name Value Range Interpretation Code Description Data [facility](s) Supporting Document(s) Choriogonadotropin.beta subunit [Moles/volume] in Seru m or Plasma Laboratory test result [facility] ([facility] <content>QUANTITATIVE RESULT QU ALITATIVE INTERPRETATION</content>
<content> </content>
<content><5.0 IU/L NEGATIVE</content>
<content>5.0 - 25.0 IU/L INDETERMINATE</content>
<content>>25.0 IU/L POSITIVE</content>
<content></content> ID Date Data Source [id number] 04/21/2020 05:05:00 PM EDT [facility] ([facility] Name Value Range Interpretation Code Description Data [facility](s) Supporting Document(s) Magnesium [Mass/volume] in Serum or Plasma 1.9 mg/dL 1.8-2.4 [facility] ([facility] Natriuretic peptide.B prohormone N-Terminal [Mass/volu me] in Serum or Plasma 21 pg/mL [facility] ([facility] Thyroxine (T4) [Mass/volume] in Serum or Plasma 10.4 ug/dL 4.5-12.0 [facility] ([facility] Thyrotropin [Units/volume] in Serum or Plasma 0.975 uIU/ML 0.358-3.74 0 [facility] ([facility] ID Date Data Source [id number] 04/21/2020 05:05:00 PM EDT [facility] ([facility] Name Value Range Interpretation Code Description Data [facility](s) Supporting Document(s) Creatinine For GFR 0.96 mg/dL 0.55-1.30 [facility] ([facility] Glucose, Fasting 90 mg/dL 70-100 [facility] ([facility] Blood Urea Nitrogen 17 mg/dL 7-18 [facility] ([facility] Sodium Level 143 meq/L 136-145 [facility] ([facility] Glomerular Filtration Rate Laboratory test result [facility] ([facility] <content>Units are mL/min/1.73 m2</content>
<content></content>
<content>Chronic Kidney Disease Staging per NKF:</content>
<content></content>
<content>Stage I & II GFR >=60 Normal to Mildly Decreased</content>
<content>Stage III GFR 30- 59 Moderately Decreased</content>
<content>Stage IV GFR 15-29 Severely Decreased</content>
<content>Stage V GFR <15 Very Little GFR Left</content>
<content>ESRD GFR <15 on CONCRETE PIPE MAKING MACHINE OPERATOR</content>
<content></content> Potassium Serum 3.9 meq/L 3.5-5.1 [facility] ([facility] Chloride Level 107 meq/L 98-107 [facility] ([facility] Carbon Dioxide Level 29 meq/L 21-32 [facility] ([facility] Anion Gap 7 meq/L 8-16 [facility] Calcium Level 9.8 mg/dL 8.5-10.1 [facility] ([facility] ID Date Data Source [id number] 04/21/2020 05:05:00 PM EDT [facility] ([facility] Name Value Range Interpretation Code Description Data [facility](s) Supporting Document(s) Alt/SGPT 54 U/L 12-78 [facility] ([facility] Ast/Sgot 17 U/L 7-37 [facility] ([facility] Alkaline Phosphatase 83 U/L 45-117 [facility] ([facility] Bilirubin,Total 0.3 mg/dL 0.2-1.0 [facility] ([facility] Bilirubin,Direct 0.2 mg/dL 0.0-0.2 [facility] ([facility] Total Protein 8.1 GM/DL 6.4-8.2 [facility] ([facility] Albumin 4.4 GM/DL 3.2-5.2 [facility] ([facility] Albumin/Globulin Ratio 1.2 1.2-2.2 [facility] ([facility] ID Date Data Source [id number] 04/21/2020 05:05:00 PM EDT [facility] ([facility] Name Value Range Interpretation Code Description Data [facility](s) Supporting Document(s) CPK Creatine Phosphokinase 70 U/L 26-192 [facility] ([facility] CK-MB Value Mass Laboratory test result [facility] ([facility] MB/CK Relative Index 1.43 [facility] ([facility] <content>DIAGNOSIS CRITERIA</content>
<content>MMB ng/ml Relative Index (RI)</content>
<content>NON-AMI < or = 5 N/A</content>
<content>LEWIS ZONE > 5 < or = 4</content>
<content>AMI > 5 > 4</content>
<content></content> Troponin I Laboratory test result [facility] ([facility] <content>Troponin I Reference Interval f or [facility] [place] LOCI:</content>
<content></content>
<content>99th Percentile= 0.00-0.045 ng/ml</content>
<content></content>
<content>Risk Stratification:</content>
<content><= 0.10 ng/ml Decreased Risk for Adverse Clinical</content>
<content>Events.</content>
<content>0.10-1.50 ng/ml Increased Risk for Adverse Clinical</content>
<content>Events. Evaluation of additional</content>
<content>criterion and/or repeat testing in 2-6</content>
<content>hours is suggested to rule out myocardial</content>
<content>damage.</content>
<content>>= 1.50 ng/ml Indicative of Myocardial Injury.</content>
<content></content> ID Date Data Source [id number] 04/21/2020 05:05:00 PM EDT [facility] ([facility] Name Value Range Interpretation Code Description Data Jada rce(s) Supporting Document(s) Fibrin D-dimer FEU [Mass/volume] in Platelet poor plasma 297.87 ng/mL [facility] ([facility] ID Date Data Source [id number] 04/21/2020 05:05:00 PM EDT [facility] ([facility] Name Value Range Interpretation Code Description Data Jada rce(s) Supporting Document(s) Prothrombin Time 12.7 s 11.8-14.0 [facility] ([facility] Inr 0.98 [facility] ([facility] THERAPUTIC HUMAN INR VALUES INDICATIONS NORMAL RANGES PROPHYLAXIS/TREATMENT OF: VENOUS THROMBOSIS 2.0-3.0 PULMONARY EMBOLISM 2.0-3.0 PREVENTION OF SYSTEMIC EMBOLISM FROM: TISSUE HEART VALVES 2.0-3.0 ACUTE MYOCARDIAL INFARCTION 2.0-3.0 VALVULAR HEART DISEASE 2.0-3.0 ATRIAL FIBRILLATION 2.0-3.0 MECHANICAL VALVES(HIGH RISK) 2.5-3.5 RECURRENT MYOCARDIAL INFARCTION 2.5-3.5 ID Date Data Source [id number] 04/21/2020 05:05:00 PM EDT [facility] ([facility] Name Value Range Interpretation Code Description Data Jada rce(s) Supporting Document(s) Red Blood Count 4.56 10 4.00-5.40 [facility] ([facility] White Blood Count 9.9 10 4.0-10.0 [facility] ([facility] Hemoglobin 13.0 g/dL 12.0-15.5 [facility] ([facility] Mean Corpuscular Volume 88.8 fl 80.0-96.0 M [facility] ([facility] Hematocrit 40.5 % 36.0-47.0 [facility] ([facility] Mean Corpuscular Hemoglobin 28.5 pg 27.0-33.0 [facility] ([facility] Mean Corpuscular HGB Conc 32.1 g/dL 32.0-36.5 [facility] ([facility] Platelet Count, Automated 326 10 150-450 [facility] ([facility] Red Cell Distribution Width 13.1 % 11.5-14.5 [facility] ([facility] Neutrophils % 59.2 % 36.0-66.0 [facility] ([facility] Lymph % 31.2 % 24.0-44.0 [facility] Giles % 6.7 % 0.0-5.0 [facility] Eos % 2.0 % 0.0-3.0 [facility] ([facility] Nucleated Red Blood Cell % 0.0 % 0-0 [facility] ([facility] Immature Granulocyte % 0.2 % 0-3.0 [facility] ([facility] Baso % 0.7 % 0.0-1.0 [facility] ([facility] Neutrophils # 5.9 10 1.5-8.5 [facility] ([facility] Lymph # 3.1 10 1.5-5.0 [facility] Baso # 0.1 10 0.0-0.2 [facility] Giles # 0.7 10 0.0-0.8 [facility] Eos # 0.2 10 0.0-0.5 [facility] ID Date Data Source URINE TEST 04/01/2020 12:00:00 AM EDT eCW1 ([facility]) Name Value Range Interpretation Code Description Data Jada rce(s) Supporting Document(s) NEGATIVE NEGATIVE URINE PREG TEST W1 ([facility]) Procedure Social History Code Duration Value Status Description Data Source(s ) Smoking 12/21/2020 12:00:00 AM EST Never Smoked Cigarettes com pleted Never Smoked Cigarettes [facility] ([facility] Smoking 10/23/2020 12:00:00 AM EST Never Smoker completed Never S moker eCW1 ([facility]) Smoking 06/19/2020 12:00:00 AM EDT Patient has never smoked co mpleted Patient has never smoked [facility] ([facility]) Smoking 04/27/2020 12:00:00 AM EDT Never Smoker completed Never S moker eCW1 ([facility]) Smoking 04/17/2020 12:00:00 AM EDT Never Smoker completed Never S moker eCW1 ([facility]) Vital Signs ID Date Data Source UNK Name Value Range Interpretation Code Description Data Source(s) Body mass index (BMI) [Ratio] 40.3 kg/m2 40.3 k g/m2 [facility] ([facility] Sloan body weight 125 [lb_av] 125 [lb_av] MED[facility] T ([facility] Oxygen saturation in Arterial blood by Pulse oximetry 99 % 99 % [facility] ([facility] Body weight 242.38 [lb_av] 242.38 [lb_av] [facility] T ([facility] Body height 65 [in_i] 65 [in_i] [facility] ([facility] 5'5" Respiratory rate 16 /min 16 /min [facility] ( [facility] Body temperature 96.4 [degF] 96.4 [degF] [facility] ([facility] Heart rate 88 /min 88 /min [facility] ([facility] Diastolic blood pressure 77 mm[Hg] 77 mm[Hg] [facility] ([facility] Systolic blood pressure 130 mm[Hg] 130 mm[Hg] M EDENT ([facility] Diastolic blood pressure 76 mm[Hg] 76 mm[Hg] eCW1 ([facility]) Systolic blood pressure 112 mm[Hg] 112 mm[Hg] e CW1 ([facility]) Body mass index (BMI) [Ratio] 39.99 kg/m2 39.99 kg/m2 eCW1 ([facility]) Body height 64 [in_i] 64 [in_i] eCW1 ([facility]) Body weight 105.69 kg 105.69 kg eCW1 ([facility]) Body weight 233 [lb_av] 233 [lb_av] eCW1 ([facility]) Body mass index (BMI) [Ratio] 39.7 kg/m2 39.7 k g/m2 MEDENT ([facility] Sloan body weight 125 [lb_av] 125 [lb_av] MEDEN T ([facility] Oxygen saturation in Arterial blood by Pulse oximetry 99 % 99 % MEDENT ([facility] Body weight 238.50 [lb_av] 238.50 [lb_av] MEDEN T ([facility] Body height 65 [in_i] 65 [in_i] MEDENT ([facility] 5'5" Respiratory rate 16 /min 16 /min MEDENT ( [facility] Body temperature 97.1 [degF] 97.1 [degF] MEDENT ([facility] Heart rate 72 /min 72 /min MEDENT ([facility] Diastolic blood pressure 62 mm[Hg] 62 mm[Hg] MEDENT ([facility] Systolic blood pressure 100 mm[Hg] 100 mm[Hg] M EDENT ([facility] Body mass index (BMI) [Ratio] 39.0 kg/m2 39.0 k g/m2 MEDENT ([facility]) Body height 64 [in_i] 64 [in_i] MEDENT ([facility]) 5'4" Body weight 227.00 [lb_av] 227.00 [lb_av] MEDEN T ([facility]) Body temperature 98.3 [degF] 98.3 [degF] MEDENT ([facility]) Oxygen saturation in Arterial blood by Pulse oximetry 98 % 98 % MEDENT ([facility]) Heart rate 76 /min 76 /min MEDENT ([facility]) Diastolic blood pressure 85 mm[Hg] 85 mm[Hg] MEDENT ([facility]) Systolic blood pressure 119 mm[Hg] 119 mm[Hg] M EDENT ([facility]) Diastolic blood pressure 84 mm[Hg] 84 mm[Hg] eCW1 ([facility]) Systolic blood pressure 132 mm[Hg] 132 mm[Hg] e CW1 ([facility]) Body temperature 99.2 [degF] 99.2 [degF] eCW1 ( [facility]) Respiratory rate 18 /min 18 /min eCW1 ([facility]) Heart rate 86 /min 86 /min eCW1 ([facility]) Body mass index (BMI) [Ratio] 41.36 kg/m2 41.36 kg/m2 W1 ([facility]) Body height 64 [in_i] 64 [in_i] eCW1 ([facility]) Body weight 241 [lb_av] 241 [lb_av] eCW1 ([facility]) Body mass index (BMI) [Ratio] 38.7 kg/m2 38.7 k g/m2 MEDENT ([facility] Sloan body weight 125 [lb_av] 125 [lb_av] MEDEN T ([facility] Oxygen saturation in Arterial blood by Pulse oximetry 99 % 99 % MEDENT ([facility] Body weight 232.75 [lb_av] 232.75 [lb_av] MEDEN T ([facility] Body height 65 [in_i] 65 [in_i] MEDENT ([facility] 5'5" Respiratory rate 12 /min 12 /min MEDENT ( [facility] Body temperature 99.0 [degF] 99.0 [degF] MEDENT ([facility] Heart rate 91 /min 91 /min MEDENT ([facility] Diastolic blood pressure 84 mm[Hg] 84 mm[Hg] MEDENT ([facility] Systolic blood pressure 130 mm[Hg] 130 mm[Hg] M EDENT ([facility] Diastolic blood pressure 85 mm[Hg] 85 mm[Hg] MEDENT ([facility] Systolic blood pressure 125 mm[Hg] 125 mm[Hg] M EDENT ([facility] Diastolic blood pressure mm[Hg] eCW1 ([facility]) Systolic blood pressure 118 mm[Hg] 118 mm[Hg] e CW1 ([facility]) Body temperature 98.2 [degF] 98.2 [degF] eCW1 ( [facility]) Respiratory rate 18 /min 18 /min eCW1 ([facility]) Heart rate 88 /min 88 /min eCW1 ([facility]) Body mass index (BMI) [Ratio] 41.02 kg/m2 41.02 kg/m2 eCW1 ([facility]) Body height 64 [in_us] 64 [in_us] eCW1 ([facility]) Body weight Measured 239 [lb_av] 239 [lb_av] eC W1 ([facility]) Body mass index (BMI) [Ratio] 40.3 kg/m2 40.3 k g/m2 [facility] Body height 64 [in_i] 64 [in_i] [facility] ([facility], [facility]) 5'4" Body weight 235.00 [lb_av] 235.00 [lb_av] MEDEN T ([facility], [facility]) Body temperature 98.3 [degF] 98.3 [degF] [facility] Oxygen saturation in Arterial blood by Pulse oximetry 98 % 98 % [facility] ([facility], [facility]) Respiratory rate 16 /min 16 /min [facility] ( [facility], [facility]) Heart rate 85 /min 85 /min [facility] ([facility], [facility]) Diastolic blood pressure 86 mm[Hg] 86 mm[Hg] [facility] Systolic blood pressure 127 mm[Hg] 127 mm[facility]Hg] [facility]
--- NOTE | 2020-12-24 20:55 | REPVR ---
PROCEDURE INFORMATION: Exam: XR Chest, 2 Views Exam date and time: 12/24/2020 7:41 PM Age: 30 years old Clinical indication: Other: Palpitations TECHNIQUE: Imaging protocol: XR of the chest Views: 2 views. COMPARISON: No relevant prior studies available. FINDINGS: Lungs: Unremarkable. No consolidation. Pleural spaces: Unremarkable. No pleural effusion. No pneumothorax. Heart/Mediastinum: Unremarkable. No cardiomegaly. Bones/joints: Mild thoracic dextroscoliosis. IMPRESSION: Negative chest. Electronically signed by: Marco Keane On 12/24/2020 20:55:43 PM
[2020-12-24 22:22] VITALS: BP 131/71
[2020-12-24] MEDS ORDERED: 24hr Holter XX (22:23)
--- NOTE | 2020-12-25 08:19 | ECGEPIP ---
[facility] - ED Test Date: 2020-12-24 Pat Name: DG VALERIO Department: Room: - Gender: Female Crester: FLACO : 1990 Requested By: JULES Hassan Order Number: [id number] Reading MD: Juana Marroquin Measurements Intervals Vale Rate: 75 P: 29 LA: 134 QRS: 16 QRSD: 92 T: 19 QT: 380 QTc: 424 Interpretive Statements Sinus rhythm with sinus arrhythmia with occasional premature ventricular complexes No prior Electronically Signed on 12-25-2020 8:18:56 EST by uJana Marroquin
== END 2020-12-24 22:30 | disposition home or self-care (01) ==
LOC: M ED 17:12
DX: I49.40 Unspecified premature depolarization (principal); R00.2 Palpitations; F41.9 Anxiety disorder, unspecified; K21.9 Gastro-esophageal reflux disease without esophagitis; Z79.82 Long term (current) use of aspirin; Z79.899 Other long term (current) drug therapy